=== PATIENT | female | born 1990 | race African-American/Black ===

== ENCOUNTER 2018-04-05 17:49 | Inpatient (IN) | payer OTHER ==
--- NOTE | 2018-04-05 18:16 | EDPHY ---
H & P Stated Complaint: NEEDS MENTAL HEALTH EVAL PARANOIA Source: Patient, Family (Roommate), Old records Exam Limitations: No limitations - Personal History LMP (Females 10-55): Now Current Tetanus Diphtheria and Acellular Pertussis (TDAP): Unsure - Medical/Surgical History Hx Asthma: No Hx Chronic Respiratory Disease: No Hx Diabetes: No Hx Cardiac Disease: No Hx Renal Disease: No Hx Cirrhosis: No Hx Alcoholism: No Hx HIV/AIDS: No Hx Splenectomy or Spleen Trauma: No Other PMH: MIGRAINES/CROHNS/DEPRESSION - Social History Smoking Status: Current every day smoker Time Seen by Provider: 04/05/18 18:15 HPI/ROS: HPI: This is a 27-year-old female who presents with Chief Complaint: NEEDS MENTAL HEALTH EVAL PARANOIA Location: psych Quality: Depression, isolation, paranoia, suicidal thoughts Duration: Months Signs and Symptoms: no auditory hallucinations, no visual hallucinations, + suicidal ideations in the past but none currently, no homicidal ideation,+ paranoia Timing: Acute, worsening Severity: Moderate Context: Patient presents voluntarily accompanied by roommate with complaints of gradually worsening depression, isolation, paranoia and suicidal thoughts. She reports that in the past she has had suicidal thoughts but none recently. She has never had a plan on how to end her life. She has cauda fall contact with outside ruled including removing herself from Facebook. Roommate reports that she is extremely worried about her isolated behavior and depression. Uses tobacco vape and smokes marijuana almost daily. Reports that she does not have a counselor or psychiatrist and"needs one." Roommate at bedside reports that she has a safe place to live and contracts for the patient's safety. Modifying Factors: No anti psychiatric medications Comment: ROS: A comprehensive 10 system review of systems is otherwise negative aside from elements mentioned in the history of present illness. MEDICAL/SURGICAL/SOCIAL HISTORY: Medical history: MIGRAINES/CROHNS/DEPRESSION. Currently on menses. Surgical history: Denies Social history: Moved to [facility] approximately 5 years ago. Current every day smoker. Family history noncontributory. CONSTITUTIONAL: Distracted, distant, cooperative adult female, awake and alert , no obvious distress HEENT: Atraumatic and normocephalic, PERRL, EOMI. Nares patent; no rhinorrhea; no nasal mucosal edema. Tympanic membranes clear. Oropharynx clear, no exudate and moist pink mucosa. Airway patent. No lymphadenopathy. No meningismus. Cardiovascular: Normal S1/S2, regular rate, regular rhythm, without murmur rub or gallop. PULMONARY/CHEST: Symmetrical and nontender. Clear to auscultation bilaterally. Good air movement. No accessory muscle usage. ABDOMEN: Soft, nondistended, nontender, no rebound, no guarding, no peritoneal signs, no masses or organomegaly. No CVAT. EXTREMITIES: 2/2 pulses, strength 5/5, no deformities, no clubbing, no cyanosis or edema. NEUROLOGICAL: no focal neuro deficits. GCS 15. SKIN: Warm and dry, no erythema. no rash. Good capillary refill. PSYCH: Poor eye contact, delayed answering of questions, relatively organized thought process, fair insight and judgment, no auditory hallucinations, no visual hallucinations, + suicidal ideations in the past but none currently, no homicidal ideation,+ paranoia (Raquel Vigil) Constitutional: Initial Vital Signs Temperature (C) 37.2 C 04/05/18 17:57 Heart Rate 84 04/05/18 17:57 Respiratory Rate 17 04/05/18 17:57 Blood Pressure 127/89 H 04/05/18 17:57 O2 Sat (%) 95 04/05/18 17:57 O2 Delivery Mode Room Air Allergies/Adverse Reactions: No Known Allergies Allergy (Verified 04/05/18 21:30) Home Medications: Medication Instructions Recorded Herbals/Supplements -Info Only 1 ea PO DAILY 04/05/18 Naproxen Sodium [Aleve 220 MG (*)] 220 mg PO BID PRN 04/05/18 Medical Decision Making - Diagnostics Imaging Results: Imaging Impressions Head CT 04/05/18 22:26 Impression: Head CT within normal limits. Results communicated to Raquel Vigil 10:39 PM General information for patients regarding this examination can be found at [email or web address]. If you have questions or comments about this report, please contact me at (hospital) or [phone] (cell). ED Course/Re-evaluation: I did not see this patient while she was in the emergency department. However her care was discussed with the PA while the patient was in the department. I agree with treatment plan and management (Scot Cuadra) 5605: Patient is voluntary mental health evaluation. Does not meet M1 hold or [facility] criteria. Labs and urine drug screen ordered. Patient is currently calm and cooperative and does not require chemical intervention. 1914: Labs reviewed and grossly unremarkable. Urine drug screen positive for marijuana. Patient is medically clear from voluntary mental health evaluation. 2124: Spoke with Dr. Lomeli who recommends MRI Brain and reassess in AM. 2226: Called by Radiology, Dr. Levin, as tech received MRI question her filled out by mother due to psychiatric illness. Radiologist does not feel comfortable performing an MRI and wishes to proceed with a head CT scan 1st. 2314: Called by radiologist, Dr. Levin, who reports head CT scan shows no acute intracranial process. 0000: End of shift. Signed over to Dr. Mendoza pending mental health evaluation in the morning and final disposition. This patient was seen under the supervision of my secondary supervising physician. I evaluated care for this patient independently. Discussed this patient with Dr. Cuadra who did not see the patient. (Raquel Vigil) Differential Diagnosis: Differential diagnosis includes but is not limited to major depression, anxiety disorder, schizophrenia, bipolar disorder, intoxicant use, suicidal ideation, psychosis, bert. (Raquel Vigil) Other Provider: 00:05 care assumed from CYNTHIA Vigil pending re-evaluation likely admission to [address] [place] [address] in the morning. 0700 patient signed out to Dr. Somers pending mental health re-evaluation. No issues during my care this patient overnight. (Tenzin Mendoza) 0722 Accepted to under the care of Dr. Lomeli, psychiatrist. (Sim Somers ) - Data Points Laboratory Results: Laboratory Results 04/05/18 18:30 04/05/18 18:30 Medications Given: Discontinued Medications Lorazepam (Ativan) 1 mg PO EDNOW ONE Stop: 04/06/18 00:11 Last Admin: 04/06/18 00:14 Dose: 1 mg Departure - Departure Disposition: [facility] IP Clinical Impression: Cognitive and behavioral changes Major depression Qualifiers: Major depression recurrence: recurrent Active/Remission status: currently active Major depression episode severity: severe Psychotic features: without psychotic features Qualified Code(s): F33.2 - Major depressive disorder, recurrent severe without psychotic features Condition: Fair Referrals: NONE *PRIMARY CARE P,. [Primary Care Provider] - As per Instructions
[2018-04-05 18:39] LABS: PLATELET COUNT 226 10^3/uL (150-400)
--- NOTE | 2018-04-05 22:39 | ASMTTLCEVL ---
TLC Evaluation - Basic Information Evaluation Start Date and 04/05/2018 08:00 PM Time Hospital Status Answers: M1 Hold 72-hr M1 Hold Start Date 04/05/2018 09:00 PM and Time Patient statement Notes: "They are all dying." "Demons are taking back." I needed to be in therapy seriously way back then, I don't know. Before I started therapy, I needed therapy." "I feel like I'm part of an experiment." Narrative Notes: The patient is a 27 y/o female, single, [employer] student, with a hx of depression. She is living with a roommate in an apartment in [place]. The patient self-presented with her roommate at the [facility] ED due to steady decompensation in affect and behavior. The patient appears to be responding to internal stimuli. Her speech trails off and is mumbled; with occasional laughter. She oscillated between logical and incomplete thoughts and nonsensical speech. She reported fearing that her family is unsafe. She stated, "They are all dying." She referenced the "demons taking back" when discussing a conversation with a former significant other. The patient's mother and roommate reported that the patient has been withdrawn and isolated socially. The patient had difficulty answering questions and is not an reliable historian at this time. The patient's maternal grandfather to fly to [place] Thursday, 04/07 to take the patient back to [place] to be with family on Thursday, 04/09. Diagnosis History Notes: The patient reported being diagnosed with depression; she was unable to discern when, by whom, and whether she was treated for MH. Prior suicide attempts Notes: The patient laughed to herself after stating, "I think about it all the time." Unable to assess due to grave disability. Prior hospitalizations Notes: The patient denied any prior hospitalizations for MH; unable to assess due to grave disability. Treatment Responses Notes: The patient denied any prior hospitalizations or treatment for MH therefore unable to assess. History of violence Notes: The patient denied any homicidal ideation or previous HX of violence; unable to assess due to grave disability. Therapist: None Psychiatrist: None Medications (name, dosage, route, freq uency) Notes: None. The patient indicated that she may have used Zoloft, Wellbutrin, and Cymbalta historically; ; unable to assess due to grave disability. Allergies/Reaction Notes: unable to assess due to grave disability Sleep Notes: The patient's roommate reported that the patient has not been sleeping. The patient reported not knowing how long it had been since she slept; unable to assess due to grave disability. Appetite Notes: The patient's roommate reported that the patient has a reduced appetite. The patient reported that she "forgets to eat" and that "things have to be just right;" unable to assess due to grave disability. Medical/Surgical history Notes: The patient mentioned hemorrhoid surgery; unable to assess due to grave disability. Substance use history (frequency, intensity, his tory, duration) Notes: The patient reported she will smoke one gram per day. The patient stated that the first time she smoked THC was when she was 13 years old and she didn't know when she last used THC. Family composition Notes: The patient's family live in [place]. Need for family Answers: Yes participation in patient's care Family psychiatric/substance abuse history Notes: The patient stated, "People at an early age and I never got an explanation. There are family secrets." Developmental history Notes: The patient denied any developmental issues or learning disabilities. The patient denied ADD or ADHD. The patient denied any TBIs concussions or LOC.The patient denied any physical abuse, emotional abuse, or sexual abuse. Abuse concerns Answers: None Marital status/children Notes: The patient is single without children. Living situation Notes: The patient lives with one roommate in an apartment in [place], [place]. Sexual history/orientation Notes: The patient identifies as bisexual. Peer support/family strengths Notes: unable to assess due to grave disability Education level/history Notes: The patient reported having attended high school and some college, she is studying psychology and mormonism at [employer]. Work history Notes: The patient was recently fired from her position at [employer] for "not keeping a smile" on her face. Notes: no known afiliation Legal Notes: The patient denied any legal issues. Temple/Spiritual Notes: The patient reported none that would interfere with treatment. Leisure Notes: unable to assess due to grave disability Collateral Notes: The collateral data was obtained from current and previous [facility] ED records/staff, 27-65 M1, friends: Caitlyn (roommate), and family members: Anuj (mother). Patient's strengths Answers: Artistic/Creative/Musical (Please select at least TWO strengths): Good Friend to Others Intelligent Supportive Family TLC Evaluation - Mental Status Exam Appearance: Answers: Appropriate Clean Well Groomed Neat Eye Contact: Answers: Absent Mood: Answers: Euthymic Affect: Answers: Constricted Distracted Flat Suspicious Behavior: Answers: Appropriate Cooperative Guarded Wandering Withdrawn Speech: Answers: Relevant Logical Illogical Incoherent Delayed Mumbling Slowed Soft Thought Process: Answers: Disorganized Disoriented Confused Insight: Answers: Poor Judgement: Answers: Poor Manic Signs/Symptoms Answers: Distractibility Depression Answers: Difficulty Concentrating Signs/Symptoms: Diminished Interest Diminished Pleasure Flat Affect Sad Mood Withdrawn Hallucinations: Answers: None Delusions: Answers: Paranoid Ideation Current Stage of Change Answers: Precontemplation Pt reported to have Answers: No suicidal/self-injuring ideation/behavior? Pt reported to be making Answers: No suicidal/self-injuring threats? Pt reported to have Answers: No aggression/assault ideation/behavior? Pt reported to be making Answers: No aggression/assault threats? Pt exhibits inability to Answers: Yes care for self/grave disability? Ideation/behavior is Answers: No chronic? Patient has a specific Answers: No plan? Pt has access to means to Answers: No execute the plan? Ideation involves Answers: No serious/lethal intent? History of Answers: No aggressive/assaultive ideation, behavior, or threats? History of serious Answers: No physical harm to self/others while in treatment setting? [facility] Evaluation - Suicide/Homicide Risk Suicide Risk Factors: Answers: Alcohol/Heavy Drug Use Anhedonia Major Depression Single Homicide/violence risk Answers: Heavy Drug Use factors: Current Suicidal Answers: No Ideation? Current Suicidal Ideation Answers: No in the Past 48 Hours? Current Suicidal Ideation Answers: No in the Past Month? Current Suicidal Answers: No Ideation, Worst Ever? Suicide Internal Answers: Frustration Tolerance Protective Factors: Suicide External Answers: Positive Therapeutic Protective Factors: Relationships Social Support Ranking of patient's Answers: Low suicidal risk: Ranking of patient's Answers: Low homicidal risk: [facility] Evaluation - Wrap-up BDI Total Score: N/A BDI Question #2 Score: N/A BDI Question #9 Score: N/A BSS Total Score: N/A AXIS I Diagnosis (include DSM-V and ICD-10 codes), must also be entered in [employer], which is the source of truth. 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
[2018-04-06] MEDS ORDERED: LORazepam 1 MG TAB PO ONE ×2 (00:10→10:30)
--- NOTE | 2018-04-06 09:46 | GCON ---
HOSPITALIST CONSULTATION DATE OF CONSULTATION: 04/05/2018 The patient was seen in the emergency department. REASON FOR CONSULTATION: Medical management. CHIEF COMPLAINT: Paranoia. HISTORY OF PRESENT ILLNESS: This is a pleasant 27-year-old female who presents to the ED with family and roommate with concerns for increasing paranoia and suicidal thoughts. Patient overall is a fair historian. She answers, "I don't know" for multiple items on her past medical history, social histo ry, and family history. The patient is being admitted for a voluntary mental health evaluation. She is currently without any significant complaints. REVIEW OF SYSTEMS: Ten systems reviewed, negative except as noted above, but again limited history d ue to patient's mental status. ALLERGIES: No known drug allergies. HOME MEDICATIONS: As per EMR. Aleve p.r.n. and medical marijuana. PAST MEDICAL HISTORY: Significant for migraines, Crohn disease, depression. PAST SURGICAL HISTORY: Patient reports an eye surgery, but she cannot clarify with me what exactly s he had done. FAMILY HISTORY: Patient does not know. SOCIAL HISTORY: Patient reports she smokes marijuana. She is not sure if she smokes cigarettes. Sh e reports she drinks occasional alcohol, but nothing on a regular basis. She lives with a roommate. CODE STATUS: Full. PHYSICAL EXAMINATION: VITAL SIGNS: Upon arrival to the emergency department, blood pressure 127/89, heart rate is 84, respiratory rate 17, O2 saturation 95% on room air, temperature 37.2. Vitals avai lable at time of interview, blood pressure 121/84, heart rate 73, respiratory rate 18, O2 saturation 95% on room air, temperature 36.8. GENERAL: In no acute distress. Hayley 27-year-old female who is sitting in bed eating crackers, in no acute distress. Roommate is at bedside. HEAD: Normocephal ic, atraumatic. EYES: Extraocular muscles are grossly intact. Pupils equal, round, decreased react rufino to light bilaterally, but symmetric. No scleral icterus or conjunctival injection. ENT: Mucous membranes appear moist. No oropharyngeal erythema or exudates. No nasal discharge. Dentition inta ct. NECK: Supple, trachea midline. CV: Regular rate and rhythm. No murmurs, rubs, or gallops appr eciated. RESPIRATORY: Unlabored breathing. Lungs are clear to auscultation bilaterally. No wheeze s, rales, or rhonchi. CHEST: The patient does note some tenderness to palpation over the left upper pec. There does appear to be a palpable spasm that is tender to palpation. The patient also notes concern regarding her left breast, and there is a "bump. " Normal glandular breast tissue is apprecia brianna. No masses noted at 6 o'clock on the left breast. Patient without complaints in the right. Exa m was deferred. ABDOMEN: Positive bowel sounds. Soft, nontender to palpation. No rebound, guardin g, or masses appreciated. : No suprapubic tenderness to palpation. No Regalado catheter in place. EXTREMITIES: No cyanosis, clubbing, or edema appreciated. Patient with 2+ pedal pulses bilaterally and symmetric. NEURO: Grossly nonfocal. No facial drooping. Moves all extremities. Strength inta ct. Sits up independently. PSYCH: The patient is confused and altered. She is not agitated. She is pleasant and attempts to be cooperative but she is unable to answer a lot of questions. Affect is mostly flat. No current SI or HI. The patient does appear to intermittently respond to internal st imuli but is redirectable to questions but overall limited in response and easily distractible. LABORATORY STUDIES: WBC 8.77, H and H 12.6, 37.9, MCV 99.2, platelet count 226, neutrophil percent 7 4.3. Sodium 138, potassium 4.1, chloride 106, CO2 is 23, anion gap 9, BUN is 7, creatinine 0.6, GFR greater than 60 glucose 101, calcium is 9.5. Beta HCG is negative. U-tox positive for marijuana, ne gative alcohol, otherwise negative. CT head within normal limits, nothing acute. ASSESSMENT AND PLAN: Hayley 27-year-old female with history of migraines, Crohn's, depression, pre sents with concerns for paranoia and history of intermittent SI. Hospitalist consult for medical man agement. 1. Psychosis. Patient being voluntarily admitted. She is not on an M1 hold. At this time, she is not requiring any chemical restraints. She does have a history of depression. No antidepressants ar e listed on her med rec. Additional plan of care as per the primary team. 2. History of migraine headaches. Patient without any current complaints. 3. History of Crohn's, unable to verify as patient denies any medical issues at this time. She has not had any complaints of abdominal pain. Her abdominal exam is benign. She has not had any episode s of bloody diarrhea and unknown if she is currently on any immunosuppressive therapy. Currently carlin s not appear to be decompensated and blood counts are within normal limits. 4. Marijuana use. Patient reports this is medical marijuana, but she is unable to clarify any addit ional information. 5. Nutrition recommends regular diet. Patient is tolerating at bedside currently. Patient seen in the emergency department on 04/05/2018 prior to midnight. /[id number]/MODL
[2018-04-06] MEDS ORDERED: OLANZapine DISINTEGR 10 MG TAB PO ONE (10:30)
[2018-04-06] MEDS ORDERED: MAGNESIUM HYDROXIDE 30 ML UDCUP PO PRN (11:34)
[2018-04-06] MEDS ORDERED: NICOTINE POLACRILEX 2 MG GUM B PRN (11:34)
[2018-04-06] MEDS ORDERED: ACETAMINOPHEN 325 MG TAB PO PRN (11:34)
[2018-04-06] MEDS ORDERED: MAG HYDROX/AL HYDROX/SIMETH 30 ML UDCUP PO PRN (11:34)
--- NOTE | 2018-04-06 16:44 | BAPA ---
DATE OF SERVICE: 04/06/2018 CHIEF COMPLAINT: "I just had to get out of [place]." HISTORY OF PRESENT ILLNESS: Patient is a 27-year-old female who was admitted after being brought to the emergency department by her roommate. Her roommate reported to staff that she had noticed a progressive decline in the patient's functioning over several weeks. She stated that she had not been herself, was acting strangely and talking about bizarre things. These included that demons were pursuing her, that somehow people from [place] or the [facility] had been pursuing her and plans to take over the world. The patient was evaluated by SHANELL and admitted to the [facility] inpatient unit for further evaluation and treatment. I saw the patient shortly after she arrived on the unit and was not able to ascertain much additional information. She was extremely malodorous in a somewhat odd way that was primarily body odor, but may have been also some other possible ingestion or intoxicant. She was agitated, hyperactive, impulsive, and yelling, singing or shouting throughout much of the interview. She mentioned the state of [place] numerous times and evil forces and that they were after her though she did not seem to fully grasp her current circumstance or her need for any treatment. She stated that she was taking courses in psychology at [employer] and did not require any further assistance. She denied any previous psychiatric treatments, diagnoses, or hospitalizations. PAST PSYCHIATRIC HISTORY: The patient denies any previous psychiatric treatment of any kind. She states that she has never been diagnosed with any mental illness. ALLERGIES: No known medical allergies. CURRENT MEDICATIONS: The patient denies any current medications. PAST MEDICAL HISTORY: Noncontributory per patient report. SOCIAL HISTORY: Patient states that she is from [place] and had come to [place] to attend [employer]. The time of this is unclear. She states she lives with a roommate with whom she reports friendship, though she cannot give any real details. The TLC worker was able to contact the patient's grandmother in [place] who stated that she is her main support and plans to come out to [place] tomorrow. The patient denies any other stressors or legal problems. She mentions having recently been fired from a job but cannot explain exactly what this was. SUBSTANCE ABUSE HISTORY: The patient states that she smokes at least a g of cannabis per day and has since she was age 13. FAMILY HISTORY: Patient denies any family history of mental illness. ADMISSION LABORATORY: CBC shows hematocrit low at 37.9, otherwise normal. Serum chemistries were normal with the exception of a nonfasting glucose up at 101. Beta hCG is negative. Urine drug screen is positive for marijuana. MENTAL STATUS EXAMINATION: Reveals a disheveled female, wearing hospital garb. She is healthy-appearing, demonstrates an overall high activity level. She struggles to sit down for any significant period of time, preferring to stand or walk in circles around the table while we talk. She makes frequent vocalizations, singing random words or shouting. She will often make a brief statement such as "he is here" and then repeat it several times over, louder each time until she is shouting. Her affect is labile, somewhat irritable at times. Her mood is described as "great." Her thought process is disorganized. Her thought content reveals paranoid and possibly grandiose, as well as hyperreligious ideations. She appears to be attending to internal stimuli and may at times be responding also. She describe some possible ideas of reference. She is alert and oriented to person and city and state only. Her attention and concentration are poor. Her intellect is difficult to assess, though by her educational history is likely at least average. She mentions no thoughts of suicide, homicide, or violence. Her insight and judgment appear to be poor. 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 Possible cannabis intoxication, possible delirium due to substance ingestion, grave disability. The patient is a 27-year-old female with a history of heavy marijuana use, who presents at this time in a psychotic state. This has some manic features, though I would suggest that it is best accounted for primarily by her heavy cannabis use. Her current presentation is one of likely severe intoxication versus delirium, though we will need to observe to determine this. PLAN: 1. Admit to [facility] inpatient unit on an M1 hold. 2. We will continue to observe the patient to better determine most likely etiology for symptoms. 3. We will treat supportively and use antipsychotic medications as needed. We will likely provide Zyprexa at bedtime on a scheduled basis as she has reportedly not slept in 4 days and this should help with her overall bert. 4. We will engage with the patient's grandmother when she arrives to assess the situation and make discharge plans. 5. Estimated length of stay is 5-7 days. /[id number]/MODL MTDD
--- NOTE | 2018-04-06 17:31 | PDMN ---
Medical Necessity Medical necessity: Pt meets inpt criteria per MD order and [facility] M-595, Substance- Related Disorders, 2 days. 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
[2018-04-07] MEDS: LORazepam 0.5 MG TAB PO PRN ×2 (02:05→12:48)
[2018-04-07] MEDS: OLANZapine DISINTEGR 10 MG TAB PO PRN (02:05)
--- NOTE | 2018-04-07 09:19 | ASMTTCLDSP ---
TLC Discharge Disposition Disposition: Answers: Admit Discharge Concerns/Recommendations: Notes: In consultation with [facility] ED physician's office support assistant, CYNTHIA Acevedo and [facility] on-call psychiatrist, Lori Lomeli MD, both concurred that pt appears to meet 27-65 criteria requiring psychiatric hospitalization as the patient appears to be an imminent risk of harm to gravely disabled due to a mental illness condition. The patient was given the [facility] prohibited belongings list while in the ED. Was patient given the Answers: Yes Inpatient Behavioral Health Prohibited Belongings List while in the ED? For inpatient Lori Lomeli MD admission, the following psychiatrist agreed to accept patient for admission to Behavioral Health ([facility]): Type of Hold: Answers: M1/72-hour Hold Hold initiated by: Answers: Other Notes: RESPOOLER Date Signed: 04/05/2018 10:45 PM Electronically Signed By:Lena Arndt
--- NOTE | 2018-04-07 09:19 | ASMTBHMTP ---
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 He is a conman, rapist, and murder. He thinks he is smart because he he blames others." The patient endorsed intrusive thinking; she stated "I'm better able to navigate them today." The patient reported having slept well overnight; she was unable to estimate the number of hours. The patient was observed mumbling to herself and appeared to be responding to internal stimuli. Patient's stated presenting problems: Notes: The patient reported seeking services with the [facility]. She stated, "After I went there for six months, one month later I had a schizophrenic break and lost my mind." The patient reported this occurred in the summer of 2016. She reported the current episode is the worst she's ever been. Patient's goals for treatment: Notes: The patient stated, "I'm not sure... Get some help." The patient will attend groups, sleep six-eight hours per day, and eat three times daily. Patient's strengths: Notes: The patient stated, "I don't know." Identify supports outside of hospital: Notes: The patient is supported outside of the hospital by her family in [place] and her roommate, Caitlyn. Discharge criteria: Notes: Psychotic symptoms will be reduced or eliminated with return to baseline functioning in affect, thinking, and behavior prior to discharge. Initial disposition plan/considerations: Notes: When discussing discharge the patient stated, "I don't feel like I'm a danger here but I might feel that way if I leave." She plans to return home to her apartment or go to [place] with her family. Master Treatment Plan Required Signatures Psychiatrist signature: Answers: Psychiatrist: RN on-shift signature: Answers: RN: Patient signature: Answers: Patient: Date Signed: 04/07/2018 09:18 AM Electronically Signed By:Lena Arndt
--- NOTE | 2018-04-07 14:06 | ASMTBHFAM ---
Notes Note: Notes: This director underwriter sales spoke with Anuj, the patient's mother, who reported that Kush Castellanos, the patient's grandfather, arrives from [facility] @22:30. It was not clear whether he will stay until the patient is discharged. The patient has a flight booked for Thursday, 04/09, returning to [place], accompanied by her grandfather, to be with her family while she continues to recover. The patient's flight will be rescheduled for a later date when her symptoms resolve and she returns to baseline functioning. The client participated in clinical treatment rounds. She was initially calm and cooperative, prior to concluding she became tearful. The patient is influenced by her delusions. She reported that her step father is a "rapist, murderer, and conman." He is the "devil, who lies, lies, lies, lies." The patient reported that he uses "hypnosis" and "implants tiny objects into people's bodies." She reported that an xray will show the many "tiny objects" implanted in her own body. The patient reported that he is involved in sex trafficking and pornography. Date Signed: 04/07/2018 02:06 PM Electronically Signed By:Lena Arndt
--- NOTE | 2018-04-07 16:29 | SOAPPROG ---
SOAP Progress Note Assessment/Plan: Assessment: Plan: 04/07/18 16:32 Mood/psychosis: Some improvement. Will CCM, adding scheduled dose of Zyprexa at HS. Subjective: Pt seen, discussed with staff, interviewed in Treatment Team meeting. She is better by all accounts today with less physical agitation, better overall organization. She continues to display a labile affect, crying at times, laughing at others, appearing quite anxious at others. She is unable to describe her feelings but states she is afraid of her stepfather who she believes is the devil and makes "baby porn" and kills people by "putting objects inside them like pens or other things with homemade surgical tools." She repeats this numerous times during the interview. She also states repeatedly that he is going to kill "everyone in [place]" and "puts demons in people." Objective: Vital Signs Temp Pulse Resp BP Pulse Ox 36.7 C 74 16 135/94 H 98 04/06/18 10:56 04/07/18 06:00 04/07/18 06:00 04/07/18 06:00 04/07/18 06:00 MSE: Calmer, more appropriately interactive, coop. Affect is labile, tearful at times, anxious at others. Mood is "messed up." TP is disorganized. TC reveals continued paranoid and oriental orthodox delusions, IOR's and likely AH's. She is A&Ox3 today. A/C are better. Less agitated. Mentions no SI/HI/. - Time Spent With Patient Time Spent With Patient: 25" ICD10 Worksheet Patient Problems: Problems Problem Status Onset Cognitive and behavioral changes Acute Major depression Acute
[2018-04-07] MEDS: OLANZapine DISINTEGR 10 MG TAB PO SCH (20:06)
--- NOTE | 2018-04-08 15:25 | ASMTCMCOM ---
CM Note CM Note Notes: According to [facility] staff, the patient has decreased interactions, decreased eating, is generally withdrawn, and has poverty of speech. The patient remains labile and tearful. The patient completed some of her breakfast following prompting from this blurb writer. She called her mother, Anuj and grandfather, Kush, to check-in for the first time since admission. The patient was visited by her grandfather on the unit and the meeting seemed to be therapeutic for the patient; a family meeting with the provider is scheduled for tomorrow, 04/09/18 @ 11:30. Date Signed: 04/08/2018 03:25 PM Electronically Signed By:Lena Arndt
--- NOTE | 2018-04-08 15:41 | SOAPPROG ---
SOAP Progress Note Assessment/Plan: Assessment: Plan: 04/07/18 16:32 Mood/psychosis: Some improvement. Will CCM, adding scheduled dose of Zyprexa at HS. 04/08/18 15:41 Mood/psychosis: Continued gradual improvement. CCM. Subjective: Pt seen, discussed with staff. Grandfather arrived from [place] today to support her. I spoke with him briefly and planned family meeting for tomorrow. She continues to improve, though remains disorganized at times. I ask if she feels better today and she is confused by this questions, stating, "I don't know how I felt yesterday." Remains tearful at times. Objective: Vital Signs Temp Pulse Resp BP Pulse Ox 36.6 C 66 16 107/67 97 04/08/18 06:00 04/08/18 06:00 04/08/18 06:00 04/08/18 06:00 04/08/18 06:00 MSE: Remains stiff, reserved. Affect is constricted, anxious, tearful at times. Mood is "I don't know." TP is disorganized. TC reveals continued paranoia, IOR's. - Time Spent With Patient Time Spent With Patient: 15" ICD10 Worksheet Patient Problems: Problems Problem Status Onset Cognitive and behavioral changes Acute Major depression Acute
[2018-04-08] MEDS: LORazepam 0.5 MG TAB PO PRN (17:07)
[2018-04-08] MEDS: OLANZapine DISINTEGR 10 MG TAB PO PRN (17:08)
[2018-04-08] MEDS: OLANZapine DISINTEGR 10 MG TAB PO SCH (20:04)
--- NOTE | 2018-04-09 14:33 | ASMTBHFAM ---
Notes Note: Notes: The patient participated in a family meeting with the provider and her grandfather. The patient discussed maintaining her sobriety from THC when she discharges; she was advised about the risks of continued use. The patient and her grandfather discussed possible discharge plans including returning to [facility] to be with family for the holidays, establishing care with a local community mental health agency, and determining at that time whether and when she will return to school, as well as, if the patient may stay locally for a few days prior to visiting family and establishing services with [facility] in [place]. The patient was given the contact information for Chasity Mcgee at [facility] to follow up/make an appointment to discuss returning to school and further support. Date Signed: 04/09/2018 02:32 PM Electronically Signed By:Lena Arndt
--- NOTE | 2018-04-09 14:47 | SOAPPROG ---
SOAP Progress Note Assessment/Plan: Assessment: Plan: 04/07/18 16:32 Mood/psychosis: Some improvement. Will [facility], adding scheduled dose of Zyprexa at HS. 04/08/18 15:41 Mood/psychosis: Continued gradual improvement. CCM. 04/09/18 14:46 Psychosis: Resolving. Likely primarily due to cannabis. Will CCM, continue d/ c planning. CC will make appts with MHP's and GF will continue to encourage pt to come directly to [place]. If so, they will make appts there themselves. Subjective: Pt seen, discussed with staff, interviewed in family meeting with GF, CC and myself present. She continues to improve with more stable affect and less intrusive delusions. She remains fixated on fear of her stepfather, but has agreed to return to [place] to visit over the holidays. SHe is compliant with meds and tolerating Zyprexa well with no SE's. GF requests that patient go with him to [place] on Thursday and she states she wants to go home "to get grounded in my own space first." She agrees by the end of the meeting to think about it over the WE with proposed d/c on Thursday. Objective: Vital Signs Temp Pulse Resp BP Pulse Ox 36.9 C 54 L 16 107/55 L 96 04/09/18 06:00 04/09/18 06:00 04/09/18 06:00 04/09/18 06:00 04/09/18 06:00 MSE: Moderately anxious, coop, though guarded at times. Affect is bright at first, but becomes irritable and tearful at times. Mood is "I don't know. How can I know?" TP is linear at times, though continues to struggle with multi- step planning. TC reveals continued paranoia. - Time Spent With Patient Time Spent With Patient: 55" ICD10 Worksheet Patient Problems: Problems Problem Status Onset Cognitive and behavioral changes Acute Major depression Acute
[2018-04-09] MEDS: OLANZapine DISINTEGR 10 MG TAB PO SCH (21:41)
--- NOTE | 2018-04-10 13:40 | ASMTBHDC ---
Notes Note: Notes: Pt. reports feeling "good". Pt. stated she "kept waking up" last night, adding she "felt uncomfortable". Pt. reports eating well and attending groups. Pt. reports no issues with her current medications. Pt. denied SI, HI, AVH and paranoia. Pt. reports feeling paranoia "couple of days ago". Pt. reports having "less intrusive thoughts". Pt. stated upon discharge she would like to return home and "clean and organize". Pt. stated after this she is willing to fly to [place], adding for about a week, stating she "wants to go back to [facility]". Pt. stated she "feels ready". Pt. stated she needs help finding a therapist and affording her medications. Pt. stated she need to find a job when she returns from [place]. Pt. presents as alert, calm, good eye contact, groomed, cooperative and with a mostly pleasant demeanor. Staff report pt. sleeping 7 hours and being medication compliant. Date Signed: 04/10/2018 01:40 PM Electronically Signed By:Liliane Cazares
--- NOTE | 2018-04-10 15:31 | SOAPPROG ---
SOAP Progress Note Assessment/Plan: Assessment: Per Dr. Prescott's recent note: 04/07/18 16:32 Mood/psychosis: Some improvement. Will [facility], adding scheduled dose of Zyprexa at HS. 04/08/18 15:41 Mood/psychosis: Continued gradual improvement. CCM. 04/09/18 14:46 Psychosis: Resolving. Likely primarily due to cannabis. Will CCM, continue d/ c planning. CC will make appts with MHP's and GF will continue to encourage pt to come directly to [place]. If so, they will make appts there themselves. Subjective: Pt seen, discussed with staff, interviewed in family meeting with GF, CC and myself present. She continues to improve with more stable affect and less intrusive delusions. She remains fixated on fear of her stepfather, but has agreed to return to [place] to visit over the holidays. SHe is compliant with meds and tolerating Zyprexa well with no SE's. GF requests that patient go with him to [place] on Thursday and she states she wants to go home "to get grounded in my own space first." She agrees by the end of the meeting to think about it over the WE with proposed d/c on Thursday. Plan: 04/10/18 15:27 1. Patient seems to have brighter affect after visitors came to see her last night. 2. Visited with her GFOC on Thu & discussed how soon patient will go back to [place]. 3. Patient completed detailed safety plan, including focus on staying sober. 4. No change to meds, patient tolerating Olanzapine without any SE's. Subjective: Patient stated this hospitalization has "helped me sober up from my weed habits. " She says staying well is "very important" to her. She claims that the reason she got admitted was d/t "a very rough time" in her life after she was fired from her job and not sleeping. Patient is currently denying any psychotic sxs and denies any SI/HI. Objective: Vital Signs Temp Pulse Resp BP Pulse Ox 36.4 C 80 14 96/56 L 97 04/10/18 06:00 04/10/18 06:00 04/10/18 06:00 04/10/18 06:00 04/10/18 06:00 MSE: Affect: Brighter Mood: "Better" TP: Linear TC: Denies any SI/HI, not as paranoid Insight/Judgment: Improving - Time Spent With Patient Time Spent With Patient: 15" - Pending Discharge Pending Discharge Within 24 Hours: No Pending Discharge Within 48 Hours: Yes Pending Discharge Date: 04/12/18 (Possible d/c on Thursday) Pending Discharge Time: 11:00 ICD10 Worksheet Patient Problems: Problems Problem Status Onset Cognitive and behavioral changes Acute Major depression Acute
[2018-04-10] MEDS: OLANZapine DISINTEGR 10 MG TAB PO SCH (21:44)
[2018-04-11] MEDS ORDERED: PREPARATION H 51 GM CRTUBE PR PRN (14:11)
--- NOTE | 2018-04-11 15:10 | SOAPPROG ---
SOAP Progress Note Assessment/Plan: Assessment: Per Dr. Prescott's recent note: 04/07/18 16:32 Mood/psychosis: Some improvement. Will [facility], adding scheduled dose of Zyprexa at . 04/08/18 15:41 Mood/psychosis: Continued gradual improvement. CCM. 04/09/18 14:46 Psychosis: Resolving. Likely primarily due to cannabis. Will CCM, continue d/ c planning. CC will make appts with P's and GF will continue to encourage pt to come directly to [place]. If so, they will make appts there themselves. Subjective: Pt seen, discussed with staff, interviewed in family meeting with GF, CC and myself present. She continues to improve with more stable affect and less intrusive delusions. She remains fixated on fear of her stepfather, but has agreed to return to [place] to visit over the holidays. SHe is compliant with meds and tolerating Zyprexa well with no SE's. requests that patient go with him to [place] on Thursday and she states she wants to go home "to get grounded in my own space first." She agrees by the end of the meeting to think about it over the WE with proposed d/c on Thursday. Plan: 04/10/18 15:27 1. Patient seems to have brighter affect after visitors came to see her last night. 2. Visited with her [facility] on Thu & discussed how soon patient will go back to [place]. 3. Patient completed detailed safety plan, including focus on staying sober. 4. No change to meds, patient tolerating Olanzapine without any SE's. 04/11/18 15:07 1. Patient had visit with [facility] again today. She agreed to fly back to [place] with him on Thursday. Flight leaves at 5pm. [facility] would like to pick patient up from [facility] no later than 11am tomorrow. 2. Patient completed safety plan, denies any SI/HI. 3. CC to reschedule intake appt at [facility] for after patient returns from [place]. 4. No med changes. 5. D/C Thursday before 11 am. Subjective: Patient talking to [facility] in hallway. She presents bright, cheerful, smiling. She says she is feeling "better," denies any thoughts of suicide, denies feeling depressed, helpless or hopeless. She plans to fly back to [place] with ASHLYN tomorrow and spend holidays with family. She is a little "anxious" about going home, but agrees it is best plan. Objective: Vital Signs Temp Pulse Resp BP Pulse Ox 36.7 C 72 14 110/54 L 95 04/11/18 06:00 04/11/18 06:00 04/11/18 06:00 04/11/18 06:00 04/11/18 06:00 MSE: Affect: Bright Mood: "Good" TP: Linear TC: Denies any SI/HI Insight/ Judgment: Fair - Time Spent With Patient Time Spent With Patient: 15" - Pending Discharge Pending Discharge Within 24 Hours: Yes Pending Discharge Date: 04/12/18 ([facility] would like to pick her up before 11am tomorrow. ) Pending Discharge Time: 11:00 ICD10 Worksheet Patient Problems: Problems Problem Status Onset Cognitive and behavioral changes Acute Major depression Acute
[2018-04-11] MEDS: OLANZapine DISINTEGR 10 MG TAB PO SCH (21:01)
[2018-04-12 06:37] VITALS: BP 109/53
--- NOTE | 2018-04-12 14:21 | ASMTBHDC ---
Notes Note: Notes: Pt. reports feeling "okay". Pt. stated she "had a really hard time sleeping" adding she was "worried about roommate". Pt. reports eating well and having no issues with her current medications. Pt. denied SI, HI, and AVH. Pt. reports a "little bit" of paranoia, adding she feels paranoia about "just worried, not sure why". Pt. stated she "feel like need to reestablish connections with people. been isolating lately". Pt. stated she has a plane ticket to [place] from Thursday04/12/18 at 5:00pm. Pt. presents as alert, calm, friendly, good eye contact, and cooperative. Staff report pt. sleeping 7 hours and being medication compliant. Date Signed: 04/11/2018 02:02 PM Electronically Signed By:Liliane Cazares
--- NOTE | 2018-04-12 14:21 | ASMTBHFAM ---
Notes Note: Notes: CC met with pt and GFOC. Pt. stated she wants to stay the night in the hospital and discharge by 11:00am at the latest on Thursday. Pt. has a plane ticket to [place] for Thursday at 5:00pm. Pt. stated she will go home and pack for [place]. GFOC stated he can pick pt. up on Thursday. Pt. requested CC reschedule her [facility] intake for after she returns to [place]. GFOC stated pt. will fly to [place] with him and fly back to [place] alone after 04/28/18. Pt. stated she can fill and take her medications. Pt. stated she will be able to get to her follow up appointments. Pt. stated she completed her safety plan. Date Signed: 04/11/2018 02:05 PM Electronically Signed By:Liliane Cazares
--- NOTE | 2018-04-12 14:22 | ASMTBHDC ---
Notes Note: Notes: Revised discharge follow time/date for client regarding [facility] Intake: Follow up with: [facility] [address] [place] [address], [facility] Intake Appt: April 30 (04/30/18) at 2:30pm with [place]. Coupons for medications - [employer] Date Signed: 04/12/2018 08:47 AM Electronically Signed By:Colt Paez
--- NOTE | 2018-04-12 14:23 | ASMTBHDC ---
Notes Note: Notes: Pt. reports feeling "alright". Pt. stated she slept "very good". Pt. stated she is eating well and attending groups. Pt. reports no issues with her current medications. Pt. requested a coupon to help pay for her medication, CC provided. Pt. reports being "all checked in" for her flight this evening. Pt. stated he is "excited and nervous to go to [place]". Pt. stated she was thinking of moving back to [place], but has since realized she wants to stay in [place]. Pt. stated she "medically withdrew" from [facility], but hopes to rejoin in the spring. Pt. denied SI, HI, AVH and paranoia. Pt. presents as alert, calm, friendly, groomed, good eye contact, and cooperative. Staff report pt. sleeping 8.5 hours and being medication compliant. Pt's follow up appointment is as follows: [facility] [address] [place] [address] Intake Appt: April 30 (04/30/18) at 2:30pm with Ed[place]. Date Signed: 04/12/2018 11:15 AM Electronically Signed By:Liliane Cazares
== END 2018-04-12 11:23 | disposition home or self-care (01) | DRG 897 ==
LOC: BBEH 04-06 09:08
PROVIDERS: ADMIT Psychiatry & Neurology Psychiatry; ATTEND Psychiatry & Neurology Psychiatry
DX: F12.250 Cannabis dependence with psychotic disorder with delusions (principal); F12.221 Cannabis dependence with intoxication delirium; T40.7X4A Poisoning by cannabis (derivatives), undetermined, initial encounter; F17.210 Nicotine dependence, cigarettes, uncomplicated; Z86.59 Personal history of other mental and behavioral disorders
CPT/HCPCS: 80305; G0480